=== PATIENT | male | born 1975 | race Caucasian/White ===

== ENCOUNTER 2023-02-17 11:42 | Outpatient (CLI) | payer OTHER, SELFPAY | END 2023-02-17 11:43 | disposition home or self-care (01) | PROVIDERS: PCP Physician Assistant Medical; Visit Provider Physician Assistant Medical | DX: Z00.00 Encounter for general adult medical examination without abnormal findings (principal); I10 Essential (primary) hypertension; R73.9 Hyperglycemia, unspecified; D68.51 Activated protein C resistance | CPT/HCPCS: 80053; 80061 ==